=== PATIENT | male | born 1950 | race Caucasian/White ===

== ENCOUNTER 2018-05-23 13:42 | Inpatient (IN) | payer OTHER ==
[~2018-05-23] VITALS: Ht 162.6 cm; Wt 103.0 kg
[~2018-05-23 13:42] MED LIST: ALBU90OI6; ASPI81CH PO; ATEN25; Amaryl4 MG PO; CARV3.125 PO; COQ1050 MG PO; FLUSAL2505 INH; Glucophage1000 MG PO; Humalog100 UNIT/1 SC; INSULANPEN; IRON SUPPLEMENT PO; IRON325 MG PO; LEVSOD150 PO; LISI5; MAGOXI400 PO; METF500; PIOG30 PO; Prinivil10 MG PO; SIMV40 PO; SITA100T2; TAMS.4ER PO; TOUJEO SOL300 UNIT/1 SC; TRIHYD253A PO; TRIPLE FLEX CA1 EACH PO
[2018-05-28] MEDS ORDERED: ENOX40I SC (07:45)
[2018-05-28] MEDS ORDERED: HYDR1TAB94 PO (07:46)
[2018-05-28] MEDS ORDERED: PROM25 PO (07:47)
[2018-05-29 05:10] LABS: BASOPHILS ABSOLUTE AUTO 0.01 K/mm3 (0.00-0.23); BASOPHILS PERCENT AUTO 0 % (0-2); EOSINOPHILS PERCENT AUTO 0 % (0-6); Hematocrit 37.3 % (37.0-53.0); Hemoglobin 12.5 g/dL (13.5-17.5); IMMATURE GRAN ABSOLUTE AUTO 0.06 K/mm3 (0.00-0.10); IMMATURE GRAN PERCENT AUTO 0 % (0-1); LYMPHOCYTES ABSOLUTE AUTO 1.16 K/mm3 (0.84-5.20); LYMPHOCYTES PERCENT AUTO 8 % (21-46); MONOCYTES ABSOLUTE AUTO 1.22 K/mm3 (0.16-1.47); MONOCYTES PERCENT AUTO 8 % (4-13); Mean Corpuscular HGB 26.9 pg (26.0-34.0); Mean Corpuscular HGB Conc 33.5 g/dL (31.5-36.5); Mean Corpuscular Volume 80 fL (80-100); Mean Platelet Volume 10.3 fL (9.1-12.4); NEUTROPHILS ABSOLUTE AUTO 12.81 K/mm3 (1.96-9.15); NEUTROPHILS PERCENT AUTO 84 % (41-73); Platelet Count 239 K/mm3 (150-400); RDW Standard Deviation 40.3 fL (35.1-46.3); Red Blood Cell Count 4.65 M/mm3 (4.30-5.90); White Blood Cell Count 15.26 K/mm3 (4.00-11.30)
[2018-05-29 05:24] LABS: Anion Gap 11 mmol/L (6-16); Blood Urea Nitrogen 22 mg/dL (8-24); Bun/Creatinine Ratio 21.6 (12.0-20.0); CO2, Blood 26 mmol/L (21-32); Calcium, Blood 8.3 mg/dL (8.5-10.1); Chloride, Blood 102 mmol/L (98-108); Creatinine, Blood 1.02 mg/dL (0.60-1.20); Glomerular Filtration Rate >60 (60-); Glucose, Blood 224 mg/dL (70-99); Magnesium, Blood 1.8 mg/dL (1.6-2.4); Potassium, Blood 4.2 mmol/L (3.5-5.5); Sodium, Blood 139 mmol/L (136-145)
== END 2018-05-29 12:39 | disposition home or self-care (01) | DRG 470 ==
LOC: SURS 05-28 06:01 → PRE IP 05-28 07:30 → SURS 05-28 11:58
PROVIDERS: Orthopaedic Surgery
PROC: 0SR904Z Replacement of Right Hip Joint with Ceramic on Polyethylene Synthetic Substitute, Open Approach (ICD-10-PCS; principal; 2018-05-28 07:30)
DX: M16.11 Unilateral primary osteoarthritis, right hip (principal); I51.7 Cardiomegaly; E11.9 Type 2 diabetes mellitus without complications; E05.00 Thyrotoxicosis with diffuse goiter without thyrotoxic crisis or storm; E78.5 Hyperlipidemia, unspecified; I10 Essential (primary) hypertension; J45.909 Unspecified asthma, uncomplicated; N40.0 Benign prostatic hyperplasia without lower urinary tract symptoms
CPT/HCPCS: 36415; 72170; 80048; 82947; 83735; 85025; 86850; 86900; 86901; 97110; 97116; 97161; 97165; 97530; 97535; C1713; C1776; G8978; G8979; G8987; G8988; J0171; J0690; J0735; J1100; J1650; J1815; J1885; J2250; J2370; J2405; J2795; J7120

== ENCOUNTER → 2019-08-21 | Outpatient (CLI) | payer OTHER ==
[~2019-08-21] MED LIST changes: +ENOX40I SC; +HYDR1TAB94 PO; +PROM25 PO
[2019-08-21 08:29] LABS: BASOPHILS ABSOLUTE AUTO 0.04 K/mm3 (0.00-0.23); BASOPHILS PERCENT AUTO 1 % (0-2); EOSINOPHILS ABSOLUTE AUTO 0.23 K/mm3 (0.00-0.68); EOSINOPHILS PERCENT AUTO 3 % (0-6); Hematocrit 44.6 % (37.0-53.0); Hemoglobin 14.4 g/dL (13.5-17.5); IMMATURE GRAN ABSOLUTE AUTO 0.02 K/mm3 (0.00-0.10); IMMATURE GRAN PERCENT AUTO 0 % (0-1); LYMPHOCYTES ABSOLUTE AUTO 1.41 K/mm3 (0.84-5.20); LYMPHOCYTES PERCENT AUTO 21 % (21-46); MONOCYTES PERCENT AUTO 7 % (4-13); Mean Corpuscular HGB 27.9 pg (26.0-34.0); Mean Corpuscular HGB Conc 32.3 g/dL (31.5-36.5); Mean Corpuscular Volume 86 fL (80-100); Mean Platelet Volume 9.8 fL (9.1-12.4); NEUTROPHILS ABSOLUTE AUTO 4.52 K/mm3 (1.96-9.15); NEUTROPHILS PERCENT AUTO 67 % (41-73); Platelet Count 308 K/mm3 (150-400); RDW Standard Deviation 47.1 fL (35.1-46.3); Red Blood Cell Count 5.17 M/mm3 (4.30-5.90); White Blood Cell Count 6.72 K/mm3 (4.00-11.30)
[2019-08-21 09:32] LABS: Anion Gap 6 mmol/L (6-16); Blood Urea Nitrogen 20 mg/dL (8-24); Bun/Creatinine Ratio 19.4 (12.0-20.0); CO2, Blood 31 mmol/L (21-32); Chloride, Blood 107 mmol/L (98-108); Creatinine, Blood 1.03 mg/dL (0.60-1.20); Glomerular Filtration Rate >60 (60-); Glucose, Blood 164 mg/dL (70-99); Potassium, Blood 4.5 mmol/L (3.5-5.5); Sodium, Blood 144 mmol/L (136-145)
== END | disposition home or self-care (01) ==
LOC: LAB EV 07:50 → LAB SHORT 07:50
PROVIDERS: Orthopaedic Surgery
DX: I10 Essential (primary) hypertension (principal)
CPT/HCPCS: 36415; 80048; 85025

== ENCOUNTER 2019-08-31 06:15 | Day surgery (SDC) | payer OTHER ==
[~2019-08-31] VITALS: Ht 162.6 cm; Wt 100.7 kg
--- NOTE | 2019-08-31 10:51 | NUR ---
08/31/19 1051 Dona Salazar PER THEY HAVE PHYSICAL THERAPY SET UP ALREADY. RX GIVEN TO DAUGHTER AKIRA TO FILL
--- NOTE | 2019-08-31 10:52 | NUR ---
08/31/19 1052 Dona Salazar PT VOIDED 300CC CLEAR YELLOW URINE VIA URINAL IN PACU
== END 2019-08-31 10:50 | disposition home or self-care (01) ==
LOC: ORSCSDS 06:15
PROVIDERS: Orthopaedic Surgery
PROC: 0RBK4ZZ Excision of Left Shoulder Joint, Percutaneous Endoscopic Approach (ICD-10-PCS; principal; 2019-08-31 07:30)
DX: M75.112 Incomplete rotator cuff tear or rupture of left shoulder, not specified as traumatic (principal); M19.012 Primary osteoarthritis, left shoulder; M75.42 Impingement syndrome of left shoulder; E11.9 Type 2 diabetes mellitus without complications; E03.9 Hypothyroidism, unspecified; E78.5 Hyperlipidemia, unspecified; E66.01 Morbid (severe) obesity due to excess calories; Z68.38 Body mass index [BMI] 38.0-38.9, adult; J45.909 Unspecified asthma, uncomplicated; Z79.4 Long term (current) use of insulin; Z79.899 Other long term (current) drug therapy; Z79.84 Long term (current) use of oral hypoglycemic drugs
CPT/HCPCS: 82947; J0171; J0690; J2250; J2405; J2704; J2710; J2765; J3010; J7120

== ENCOUNTER 2022-01-09 07:31 | Day surgery (SDC) | payer OTHER ==
[~2022-01-09] VITALS: Ht 162.6 cm; Wt 100.5 kg
[~2022-01-09 07:31] MED LIST changes: +ALBU90OI INH; +ATEN25 PO; +FINA5 PO; +FLUT1DIS5 INH; +GABA300 PO; -Glucophage1000 MG PO; +METF500 PO
--- NOTE | 2022-01-09 08:59 | NUR ---
01/09/22 0859 AUSTYN KUNZ History, Chart, Medications and Allergies reviewed before start of procedure. Patient confirms NPO status and agrees with scheduled surgery. 3-LEAD EKG REVIEWED WITH PHYSICIAN PRIOR TO START OF PROCEDURE. MONITOR INTACT WITH CONTINUOUS PULSE OXIMETRY AND INTERMITTENT BP. PATIENT DETERMINED TO BE ASA APPROPRIATE FOR PROPOFOL SEDATION PRIOR TO START OF PROCEDURE BY DR. BRADY. O2 VIA POM MASK.
--- NOTE | 2022-01-09 09:55 | NUR ---
Patient up to Ambulate independently. Gait steady. Discharge instructions reviewed with patient. Patient verbalizes understanding. Copy given to patient to take home. Patient States Post-Procedure ride home has been arranged. Discharged via wheelchair to private car for ride home.
== END 2022-01-09 09:55 | disposition home or self-care (01) ==
LOC: ORSCMMR 07:31 → ORD 09:00 → ORSCMMR 09:00
PROVIDERS: Surgery
PROC: 0DBN8ZX Excision of Sigmoid Colon, Via Natural or Artificial Opening Endoscopic, Diagnostic (ICD-10-PCS; principal; 2022-01-09 09:00)
PROC: 0DBK8ZX Excision of Ascending Colon, Via Natural or Artificial Opening Endoscopic, Diagnostic (ICD-10-PCS; principal; 2022-01-09 09:00)
DX: Z12.11 Encounter for screening for malignant neoplasm of colon (principal); Z86.010 Personal history of colon polyps; D12.2 Benign neoplasm of ascending colon; D12.5 Benign neoplasm of sigmoid colon; E11.9 Type 2 diabetes mellitus without complications; I10 Essential (primary) hypertension; Z79.899 Other long term (current) drug therapy
CPT/HCPCS: 82947; 88305; J2704; J7120

== ENCOUNTER → 2022-05-19 | Outpatient (CLI) | payer OTHER | END | disposition home or self-care (01) | LOC: LAB 16:39 → LAB SHORT 16:39 | DX: L72.3 Sebaceous cyst (principal) | CPT/HCPCS: 87070; 87075; 87205 ==

== ENCOUNTER 2023-04-30 10:01 | Day surgery (SDC) | payer OTHER ==
[~2023-04-30] VITALS: Ht 162.6 cm; Wt 97.9 kg
[2023-04-30] MEDS ORDERED: FARXIGA5 MG (11:09)
[2023-04-30] MEDS ORDERED: ENTRESTO 24 MG1 EAC3 (11:10)
[2023-04-30] MEDS ORDERED: ERGO400 (11:10)
[2023-04-30 12:40] VITALS: BP 108/68
--- NOTE | 2023-04-30 12:43 | NUR ---
[facility]30/23 1243 [facility]
== END 2023-04-30 12:45 | disposition home or self-care (01) ==
LOC: ORSCSDS 10:01
PROVIDERS: Surgery
PROC: 0DBK8ZX Excision of Ascending Colon, Via Natural or Artificial Opening Endoscopic, Diagnostic (ICD-10-PCS; principal; 2023-04-30 11:30)
PROC: 0DBN8ZX Excision of Sigmoid Colon, Via Natural or Artificial Opening Endoscopic, Diagnostic (ICD-10-PCS; principal; 2023-04-30 11:30)
DX: Z86.010 Personal history of colon polyps (principal); D12.2 Benign neoplasm of ascending colon; D12.5 Benign neoplasm of sigmoid colon; I10 Essential (primary) hypertension; E78.5 Hyperlipidemia, unspecified; E03.9 Hypothyroidism, unspecified; E11.9 Type 2 diabetes mellitus without complications; D50.9 Iron deficiency anemia, unspecified; J45.909 Unspecified asthma, uncomplicated; Z79.84 Long term (current) use of oral hypoglycemic drugs; Z79.899 Other long term (current) drug therapy
CPT/HCPCS: 82947; 88305; J2704; J7120

== ENCOUNTER 2024-07-21 07:13 | Day surgery (SDC) | payer OTHER ==
[~2024-07-21] VITALS: Ht 162.6 cm; Wt 98.0 kg
[~2024-07-21 07:13] MED LIST changes: +Balanced Salt Epinephrine Irrigation Solution 500 mL IR SCH; +ENTRESTO 24 MG1 EAC3; +ERGO400; +FARXIGA5 MG; +Lidocaine HCl/Pf 1% 5 ML VIAL ONE; +Lidocaine HCl/Pf 1% 5 ML VIAL XX SCH; +Moxifloxacin HCL 0.5 MG/0.1 ML 0.4MLSYR LEFTEYE SCH; +NS 500 ML IV ONE; +PHENYLEPHRINE\\TROPICAMIDE\\TETRACAINE OPHTHALMIC DILATING SOLN LEFTEYE PRN; +Povidone-Iodine 450 DROP/30 ML Solution LEFTEYE SCH; +Povidone-Iodine 450 DROP/30 ML Solution ONE; +Tetracaine HCl/Pf 0.5% Opth Soln 4 ml ONE
[2024-07-21] MEDS ORDERED: TRULICITY3 MG/0.5 M SQ (07:43)
[2024-07-21] MEDS ORDERED: TAMSULOSIN HCL0.4 M1 PO (07:44)
[2024-07-21] MEDS ORDERED: SEMGLEE (Y100 UNIT/2 SQ (07:46)
[2024-07-21] MEDS ORDERED: NS 500 ML IV ONE (07:59)
[2024-07-21] MEDS ORDERED: Midazolam HCl 1MG / ML 2ML Vial ONE (08:22)
[2024-07-21 09:01] VITALS: BP 135/85
== END 2024-07-21 09:03 | disposition home or self-care (01) ==
LOC: ORSCSDS 07:13
PROVIDERS: Student in an Organized Health Care Education/Training Program
PROC: 08RK3JZ Replacement of Left Lens with Synthetic Substitute, Percutaneous Approach (ICD-10-PCS; principal; 2024-07-21 08:30)
DX: E11.36 Type 2 diabetes mellitus with diabetic cataract (principal); H25.813 Combined forms of age-related cataract, bilateral; I10 Essential (primary) hypertension; E78.5 Hyperlipidemia, unspecified; E03.9 Hypothyroidism, unspecified; Z79.4 Long term (current) use of insulin; Z79.84 Long term (current) use of oral hypoglycemic drugs; Z79.899 Other long term (current) drug therapy
CPT/HCPCS: 82947; J2001; J2003; J2250; J7040; V2632

== ENCOUNTER 2024-07-28 06:57 | Day surgery (SDC) | payer OTHER ==
[~2024-07-28] VITALS: Ht 162.6 cm; Wt 97.4 kg
[~2024-07-28 06:57] MED LIST changes: -Moxifloxacin HCL 0.5 MG/0.1 ML 0.4MLSYR LEFTEYE SCH; +Moxifloxacin HCL 0.5 MG/0.1 ML 0.4MLSYR RIGHTEYE SCH; -PHENYLEPHRINE\\TROPICAMIDE\\TETRACAINE OPHTHALMIC DILATING SOLN LEFTEYE PRN; +PHENYLEPHRINE\\TROPICAMIDE\\TETRACAINE OPHTHALMIC DILATING SOLN RIGHTEYE PRN; -Povidone-Iodine 450 DROP/30 ML Solution LEFTEYE SCH; +Povidone-Iodine 450 DROP/30 ML Solution RIGHTEYE SCH; +SEMGLEE (Y100 UNIT/2 SQ; +TAMSULOSIN HCL0.4 M1 PO; +TRULICITY3 MG/0.5 M SQ
[2024-07-28] MEDS ORDERED: NS 500 ML IV ONE ×2 (07:43→08:34)
--- NOTE | 2024-07-28 07:44 | NUR ---
07/28/24 0744 Rahul Pardo CALL LIGHT WITHIN REACH. TETRACAINE IN RIGHT EYE AT 0735 AND PLEDGETT AT 0737
[2024-07-28] MEDS ORDERED: Midazolam HCl 1MG / ML 2ML Vial ONE (07:56)
[2024-07-28] MEDS ORDERED: FentaNYL Citrate 50 MCG/ML 2 ML Injection ONE (07:56)
[2024-07-28 09:13] VITALS: BP 138/67
== END 2024-07-28 09:05 | disposition home or self-care (01) ==
LOC: ORSCSDS 06:57
PROVIDERS: Student in an Organized Health Care Education/Training Program
PROC: 08RJ3JZ Replacement of Right Lens with Synthetic Substitute, Percutaneous Approach (ICD-10-PCS; principal; 2024-07-28 08:30)
DX: E11.36 Type 2 diabetes mellitus with diabetic cataract (principal); H25.811 Combined forms of age-related cataract, right eye; Z96.1 Presence of intraocular lens; J44.9 Chronic obstructive pulmonary disease, unspecified; I25.10 Atherosclerotic heart disease of native coronary artery without angina pectoris; E78.5 Hyperlipidemia, unspecified; I10 Essential (primary) hypertension; Z79.84 Long term (current) use of oral hypoglycemic drugs; Z79.85 Long-term (current) use of injectable non-insulin antidiabetic drugs; Z79.899 Other long term (current) drug therapy
CPT/HCPCS: 82947; J2001; J2250; J3010; J7040; V2632

== ENCOUNTER 2024-10-01 07:04 | Day surgery (SDC) | payer OTHER ==
[~2024-10-01] VITALS: Ht 165.1 cm; Wt 93.9 kg
[~2024-10-01 07:04] MED LIST changes: -Balanced Salt Epinephrine Irrigation Solution 500 mL IR SCH; -Lidocaine HCl/Pf 1% 5 ML VIAL ONE; -Lidocaine HCl/Pf 1% 5 ML VIAL XX SCH; -Moxifloxacin HCL 0.5 MG/0.1 ML 0.4MLSYR RIGHTEYE SCH; -NS 500 ML IV ONE; -PHENYLEPHRINE\\TROPICAMIDE\\TETRACAINE OPHTHALMIC DILATING SOLN RIGHTEYE PRN; -Povidone-Iodine 450 DROP/30 ML Solution ONE; -Povidone-Iodine 450 DROP/30 ML Solution RIGHTEYE SCH; -Tetracaine HCl/Pf 0.5% Opth Soln 4 ml ONE
[2024-10-01] MEDS ORDERED: Lactated Ringer's 1,000 ML IV ONE ×2 (07:31→08:51)
[2024-10-01] MEDS ORDERED: propofoL 50 ML IV ONE (07:31)
[2024-10-01 08:11] VITALS: BP 138/88
--- NOTE | 2024-10-01 08:54 | NUR ---
10/01/24 0854 Shelly Blas PATIENT'S RHYTHM STRIP SHOWS ABNORMAL HEART RHYTHM TODAY WELL AUSCULTATION. PT HAD NORMAL EKG ON 09/22/2024, JUST 9 DAYS AGO. CONSULTED FIRST WITH DR LOPEZ AND HE ORDERED 12 LEAD. 12 LEAD OBTATINED AND RESULTS SHOWN TO DR COELHO DR LOPEZ WAS IN PROCEDURE. DR COELHO ADVISED PATIENT SHOULD SEE CARDIOLOGY PRIOR TO PROCEDURE. DR BRADY NOTIFIED AND WENT AND SPOKE TO PATIENT TO LET HIM KNOW. CASE CANCELLED.
== END 2024-10-01 09:02 | disposition home or self-care (01) ==
LOC: ORSCSDS 07:04
DX: Z12.11 Encounter for screening for malignant neoplasm of colon (principal); Z86.0100 Personal history of colon polyps, unspecified; Z80.0 Family history of malignant neoplasm of digestive organs; Z53.9 Procedure and treatment not carried out, unspecified reason
CPT/HCPCS: 82947; 93005; 93010; J2704; J7120

== ENCOUNTER 2024-11-09 06:08 | Day surgery (SDC) | payer OTHER ==
[~2024-11-09] VITALS: Ht 162.6 cm; Wt 95.7 kg
[2024-11-09] MEDS ORDERED: NS 1,000 ML IV ONE ×2 (06:58→07:20)
[2024-11-09] MEDS ORDERED: Bupivacaine 0.5% HCl 5 MG/ML 30MLVIAL ONE ×2 (06:59→07:33)
[2024-11-09] MEDS ORDERED: EPINEPhrine HCl 1 MG/ML 1ML Amp ONE (07:00)
[2024-11-09] MEDS ORDERED: FentaNYL Citrate 50 MCG/ML 2 ML Injection ONE (07:11)
[2024-11-09] MEDS ORDERED: Phenylephrine HCl 100 MCG/ML-NS 10MLSYR (1MG/10ML) ONE ×2 (07:12→09:30)
[2024-11-09] MEDS ORDERED: Midazolam HCl 1MG / ML 2ML Vial ONE (07:12)
[2024-11-09] MEDS ORDERED: propofoL 20 ML IV ONE (07:13)
[2024-11-09] MEDS ORDERED: Tranexamic Acid 100 ML IV ONE ×2 (07:20→10:12)
[2024-11-09] MEDS ORDERED: Acetaminophen 500 MG Tab ONE (07:24)
[2024-11-09] MEDS ORDERED: CefTRIAXone Sodium 2,000 MG in NS 100 ML IV SCH (07:35)
[2024-11-09] MEDS ORDERED: Vancomycin HCL 1,000 MG in NS 250 ML IV SCH (07:35)
[2024-11-09] MEDS ORDERED: Morphine Sulfate 15 MG TABCR PO SCH (07:35)
--- NOTE | 2024-11-09 07:53 | NUR ---
11/09/24 0753 Fely Cervantes STARTED A INTRASCALENE BLOCK OF THE LEFT SHOULDER AT 0743 AND ENDED AT 0750. PT TOLERATED WELL.
[2024-11-09] MEDS ORDERED: Dexamethasone Sod Phos 10 MG/ML 1ML VIAL ONE (08:07)
[2024-11-09] MEDS ORDERED: Ondansetron HCl 2 MG / ML 2ML Vial ONE (08:07)
[2024-11-09] MEDS ORDERED: ePHEDrine Sulfate 50 MG/ML 1ML Injection ONE (08:09)
[2024-11-09] MEDS ORDERED: Glycopyrrolate 0.2 MG/ML 5ML VIAL ONE (08:49)
--- NOTE | 2024-11-09 08:52 | NUR ---
11/09/24 0852 NELSON BOLDEN 0.15 ML OF EPI 1MG/ML ADDED TO 30ML BUPIVACAINE 0.5% TO CREATE A LOCAL SOLUTION OF BUPIVACAINE 0.5% W/EPI 1:200,000.
[2024-11-09] MEDS ORDERED: Lactated Ringer's 1,000 ML IV ONE (08:53)
[2024-11-09] MEDS ORDERED: Sugammadex Sodium 200 MG/2ML SDV (100 MG/ML) ONE (10:01)
[2024-11-09 10:53] VITALS: BP 117/80
--- NOTE | 2024-11-09 10:53 | NUR ---
11/09/24 1053 DIONICIO LADD HERE
== END 2024-11-09 12:12 | disposition home or self-care (01) ==
LOC: ORSCSDS 06:08
PROVIDERS: Orthopaedic Surgery
PROC: 0RRK00Z Replacement of Left Shoulder Joint with Reverse Ball and Socket Synthetic Substitute, Open Approach (ICD-10-PCS; principal; 2024-11-09 07:30)
DX: M19.012 Primary osteoarthritis, left shoulder (principal); I10 Essential (primary) hypertension; I25.10 Atherosclerotic heart disease of native coronary artery without angina pectoris; J45.909 Unspecified asthma, uncomplicated; E11.9 Type 2 diabetes mellitus without complications; Z79.4 Long term (current) use of insulin; Z79.84 Long term (current) use of oral hypoglycemic drugs; Z79.899 Other long term (current) drug therapy
CPT/HCPCS: 73030; 82947; A9270; C1713; C1776; J0171; J0696; J1100; J2250; J2371; J2405; J2704; J3010; J3370; J7030; J7050

== ENCOUNTER 2025-01-07 07:32 | Day surgery (SDC) | payer OTHER ==
[~2025-01-07] VITALS: Ht 160 cm; Wt 97.0 kg
[2025-01-07] VITALS (10 sets, daily range): BP systolic 115–164; BP diastolic 65–92
[~2025-01-07 07:32] MED LIST changes: -FARXIGA5 MG; +FARXIGA5 MG PO; +RANO500T PO; +TRULICITY0.75 MG/01 SC
[2025-01-07] MEDS ORDERED: Aspirin 325 MG Tab ONE (09:12)
[2025-01-07] MEDS ORDERED: Verapamil HCL 2.5 MG/ML 2ML Injection ONE ×2 (09:35→09:36)
[2025-01-07] MEDS ORDERED: NS 250 ML IV ONE (09:35)
[2025-01-07] MEDS ORDERED: Heparin Sodium 1000 Units/ML 10ML MDV ONE (09:35)
[2025-01-07] MEDS ORDERED: NS 1,000 ML IV ONE ×2 (09:35→09:38)
[2025-01-07] MEDS ORDERED: Nitroglycerin 2 MG/20 ML BTL ONE (09:36)
[2025-01-07] MEDS ORDERED: Midazolam HCl 1MG / ML 2ML Vial ONE (09:38)
[2025-01-07] MEDS ORDERED: FentaNYL Citrate 50 MCG/ML 2 ML Injection ONE (09:38)
--- NOTE | 2025-01-07 11:01 | NUR ---
PATIENT TO RECOVERY ROOM AT 1050 POST CORONARY ANGIOGRAM. PATIENT WIDE AWAKE AND ALERT. PT DENIES COMPLAINTS OF PAIN, CP, DENIES NUMBNESS OR DISCOMFORT TO RIGHT HAND. TR BAND TO RIGHT WRIST, SITE REVIEWED, WNL, W/O SWELLING, BLEEDING, OR TENDERNESS. DR RENNER AT BEDSIDE UPDATING PATIENT AND PT'S .
--- NOTE | 2025-01-07 12:13 | NUR ---
radial site soft and non-tender per pt. no bleeding noted.
--- NOTE | 2025-01-07 13:40 | NUR ---
AIR REMOVED FROM TR BAND AT 1300, AIR REMOVED OVER 30MIN. WRIST AREA SOFT WITHOUT HEMATOMA, BLEEDING, OR TENDERNESS.
--- NOTE | 2025-01-07 14:16 | NUR ---
PT OOB TO CHAIR TO DRESS. RIGHT WRIST REMAINS STABLE WITHOUT ISSUES. TR BAND DC'D. SITE SOFT WITHOUT HEMATOMA, BLEEDING, OR TENDERNESS. DRSG PLACED. WRIST IMMOBILIZER IN PLACE. VERBAL AND WRITTEN DC INSTRUCTIONS GIVEN TO PT AND PT'S W CLEAR UNDERSTANDING. PT DC'D HOME IN STABLE CONDITION AT 1410. PT TAKEN OUT VIA W/C. PT'S TO DRIVE HIM HOME.
== END 2025-01-07 15:31 | disposition home or self-care (01) ==
LOC: MHTC 07:32
DX: I25.10 Atherosclerotic heart disease of native coronary artery without angina pectoris (principal); I11.0 Hypertensive heart disease with heart failure; I50.22 Chronic systolic (congestive) heart failure; I47.20 Ventricular tachycardia, unspecified; E11.9 Type 2 diabetes mellitus without complications; I10 Essential (primary) hypertension; E78.5 Hyperlipidemia, unspecified; E03.9 Hypothyroidism, unspecified; E66.9 Obesity, unspecified; Z68.37 Body mass index [BMI] 37.0-37.9, adult; Z88.5 Allergy status to narcotic agent; Z79.899 Other long term (current) drug therapy; Z79.84 Long term (current) use of oral hypoglycemic drugs
CPT/HCPCS: 76937; 93005; 93010; 93458; 99152; A9270; C1769; C1887; C1894; J1644; J2250; J3010; J7030; J7050; Q9967